=== PATIENT | female | born 1975 | race Caucasian/White ===

== ENCOUNTER → 2019-08-27 | Outpatient (CLI) | payer OTHER ==
[~2019-08-27] MED LIST: ACET1TAB55 PO
== END ==
LOC: M LABSMTC 09:23
PROVIDERS: ATTEND Anesthesiology
DX: Z01.818 Encounter for other preprocedural examination (principal); Z11.59 Encounter for screening for other viral diseases

== ENCOUNTER 2019-08-30 08:37 | Day surgery (SDC) | payer OTHER ==
[~2019-08-30] VITALS: Ht 165.1 cm; Wt 86.6 kg
[~2019-08-30 08:37] MED LIST changes: +LIDOCAINE 1% MDV 20ML VIAL SQ PRN; +LR 1,000 ML IV ONE
[2019-08-30] MEDS ORDERED: MIDAZOLAM INJ 2MG/2ML VIAL (J2250 PER 1MG) As Ordered ONE (09:40)
[2019-08-30] MEDS ORDERED: fentaNYL 250 MCG/5 ML INJECTION (J3010) As Ordered ONE (09:49)
[2019-08-30] MEDS ORDERED: LIDOCAINE 2% 100MG/5ML SDV (FOR ANES.) As Ordered ONE (09:50)
[2019-08-30] MEDS ORDERED: dexameTHASONE 4 MG/ML 1ML VIAL (J1100 PER 1MG) As Ordered ONE (09:50)
[2019-08-30] MEDS ORDERED: ROCURONIUM BROMIDE 50 MG/5 ML VIAL As Ordered ONE (09:50)
[2019-08-30] MEDS ORDERED: propofoL 200 MG/20 ML VIAL As Ordered ONE (09:50)
[2019-08-30] MEDS ORDERED: ONDANSETRON 4MG/2ML VIAL As Ordered ONE ×2 (09:50→11:58)
[2019-08-30] MEDS ORDERED: BUPIVACAINE/EPIN 0.25% 30 ML VIAL As Ordered ONE (10:28)
[2019-08-30] MEDS ORDERED: ACETAMINOPHEN 1000MG 100ML IV BTL (OFIRMEV) (J0131 PER 10MG) As Ordered ONE (10:56)
[2019-08-30] MEDS ORDERED: SUGAMMADEX SODIUM 500 MG/5 ML VIAL (BRIDION) As Ordered ONE (10:56)
[2019-08-30] MEDS ORDERED: KETOROLAC 60 MG/2 ML VIAL As Ordered ONE (10:56)
[2019-08-30] MEDS ORDERED: fentaNYL 100 MCG/2 ML INJECTION (J3010) IV PRN (12:00)
[2019-08-30] MEDS ORDERED: oxyCODONE 5MG TAB PO PRN (12:00)
[2019-08-30] MEDS ORDERED: LR 1,000 ML IV SCH (12:00)
[2019-08-30] MEDS ORDERED: ONDANSETRON 4MG/2ML VIAL IV PRN (12:00)
[2019-08-30] MEDS ORDERED: NORCO, ANEXSIA 5/325MG TABLET (HYDROcodone/ACETAMINOPHEN) PO PRN (12:15)
[2019-08-30] MEDS ORDERED: METOCLOPRAMIDE INJ 10MG/2ML VIAL (J2765 PER 1) As Ordered ONE (12:19)
[2019-08-30] MEDS ORDERED: METOCLOPRAMIDE INJ 10MG/2ML VIAL (J2765 PER 1) IV ONE (12:30)
[2019-08-30 14:25] VITALS: BP 131/68
--- NOTE | 2019-09-03 16:15 | RO ---
DATE OF PROCEDURE: 08/30/2019 PREOPERATIVE DIAGNOSIS: Symptomatic cholelithiasis. POSTOPERATIVE DIAGNOSIS: Symptomatic cholelithiasis. PROCEDURE: Robotic cholecystectomy. SURGEON: Kel Anglin DO HOTEL ASSOCIATE: Megan Gordon NP ANESTHESIA: General. ESTIMATED BLOOD LOSS: 5. COMPLICATIONS: None. INDICATIONS FOR PROCEDURE: The patient is a 43-year-old female, who presents with right upper quadrant pain, was found to have symptomatic cholelithiasis. Recommendation was to proceed with robotic cholecystectomy. Risks and benefits of procedure not limited to but including bleeding, infection, hernia formation, damage to surrounding structure, need for further surgery were discussed in detail with the patient. Informed consent was obtained and procedure was planned. DESCRIPTION OF PROCEDURE: The patient brought back to operating room #7. After sufficient sedation, the abdomen was sterilely prepped and draped. Next, a time-out was done to confirm proper patient and proper procedure. Following that 8 mm incision was made in left lower quadrant, Veress needle inserted and the abdomen was insufflated to 50 mmHg. Veress needle was then removed and then an 8 mm robotic Optiview port was used to gain access to the abdomen. Once the abdomen was entered three more ports were placed across the upper abdomen. The fundus of the gallbladder was then elevated up towards the right shoulder. Cystic duct and cystic artery were carefully dissected free using combination of blunt and sharp dissection. Once they are both clearly identified they were both doubly clipped and cut. Gallbladder was then dissected from gallbladder fossa using electrocautery and brought out intact through a 5 mm Endo Catch bag from the right lateral port site. Once the gallbladder was removed, the posterior fascia and the peritoneum were closed with a running #2-0 V-Loc suture. Once that was completed, the abdomen was desufflated. Ports removed. Skin incisions were closed with #4-0 Vicryl subcuticular sutures. The abdomen was cleaned and dried. Steri-Strips, 4 x 4 and tape were applied, thus ending procedure.
== END 2019-08-30 14:36 | disposition home or self-care (01) ==
LOC: M SDC 08:37
PROVIDERS: ATTEND Surgery
DX: K80.10 Calculus of gallbladder with chronic cholecystitis without obstruction (principal); K21.9 Gastro-esophageal reflux disease without esophagitis; F17.218 Nicotine dependence, cigarettes, with other nicotine-induced disorders
CPT/HCPCS: 47562; 88304; J0131; J1100; J1885; J2250; J2405; J2765; J3010